=== PATIENT | female | born 1980 | race Caucasian/White ===

== ENCOUNTER 2018-08-10 10:23 | Emergency (ER) | payer OTHER ==
[~2018-08-10] VITALS: Ht 160 cm; Wt 68.0 kg
[2018-08-10 10:32] VITALS: BP 100/64
--- NOTE | 2018-08-10 10:35 | NUR ---
INFLUENZA A AND B AND STREP SPECIMENS COLLECTED. LAB NOTIFIED.
--- NOTE | 2018-08-10 10:35 | NUR ---
PT. CAME INTO THE ED DUE TO COUGH AND CONGESTION X 1 WEEK. PT. HAS PRODUCTIVE COUGH X 1 WEEK. AFEBRILE AT THIS TIME. DENIES N/V/D. NO PAIN AT THIS TIME. PT. REPORTS " I HAVE A SORE THROAT AND IT HAS GOTTEN WORSE". PT IS 31 WEEKS ; LMP : 01/18/18. DENIES ANY VAGINAL BLEEDING AT THIS TIME. RR EVEN AND UNLABORED. . PT STATES " I HAVE BEEN COUGHING UP SOME GREEN PHLEGM".LS: CLEAR BILAT THROUGHOUT. ER MD NOTIFIED. SAFETY PRECAUTIONS IMPLEMENTED. WILL CONTINUE TO MONITOR.
--- NOTE | 2018-08-10 10:38 | NUR ---
HEAR TTONES : [id number]
--- NOTE | 2018-08-10 11:04 | NUR ---
Patient being evaluated by physician at bedside.
--- NOTE | 2018-08-10 11:49 | NUR ---
PT. RESTING COMFORTABLY IN BED, RR EVEN AND UNLABORED.VSS. WILL CONTINUE TO MONITOR.
[2018-08-10 12:10] VITALS: BP 100/75
--- NOTE | 2018-08-10 12:10 | NUR ---
Patient discharged with v/s stable. Written and verbal after care instructions given and explained. Patient verbalized understanding. Ambulatory with steady gait. All questions addressed prior to discharge. Advised to follow up with PMD.
== END 2018-08-10 12:10 | disposition home or self-care (01) ==
LOC: MED 10:23
DX: O99.513 Diseases of the respiratory system complicating pregnancy, third trimester (principal); J06.9 Acute upper respiratory infection, unspecified; Z3A.29 29 weeks gestation of pregnancy
CPT/HCPCS: 36415; 87081; 87804; 99284

== ENCOUNTER 2018-08-24 08:19 | Outpatient (CLI) | payer OTHER ==
[2018-08-24 08:41] LABS: BASOPHILS % (AUTO) 0.6 % (0.0-2.0); EOSINOPHILS # (AUTO) 0.1 K/uL (0-0.4); EOSINOPHILS % (AUTO) 1.2 % (0.0-4.0); HEMATOCRIT 36.2 % (36-48); LYMPHOCYTES # (AUTO) 1.4 K/uL (2.5-16.5); LYMPHOCYTES % (AUTO) 22.6 % (20.5-51.1); MEAN CORPUSCULAR HEMOGLOBIN 30 pg (27-31); MEAN CORPUSCULAR HGB CONC 33 g/dL (33-37); MEAN CORPUSCULAR VOLUME 89.7 fL (80-94); MONOCYTES # (AUTO) 0.5 K/uL (0.8-1.0); MONOCYTES % (AUTO) 8.1 % (1.7-9.3); NEUTROPHILS # (AUTO) 4.1 K/uL (1.8-7.7); NEUTROPHILS % (AUTO) 67.5 % (42.2-75.2); PLATELET COUNT (AUTO) 390 K/uL (140-450); RED BLOOD CELL COUNT(AUTO) 4.04 MIL/uL (4.20-5.40); RED CELL DISTRIBUTION WIDTH 13.8 % (11.6-13.7); WHITE BLOOD COUNT (AUTO) 6.1 K/uL (4.8-10.8)
[2018-08-24 08:57] LABS: GLUCOSE,FASTING GESTATIONAL 84 mg/dL (70-110)
== END 2018-08-24 20:22 | disposition home or self-care (01) ==
LOC: MLB 08:19
DX: O09.521 Supervision of elderly multigravida, first trimester (principal); Z3A.00 Weeks of gestation of pregnancy not specified
CPT/HCPCS: 36415; 82951; 85025; 86592